=== PATIENT | female | born 2000 | race Caucasian/White ===

== ENCOUNTER → 2020-05-15 | Outpatient (CLI) | payer BC | LOC: COL.LAB 12:11 | DX: B82.9 Intestinal parasitism, unspecified (principal) ==

== ENCOUNTER → 2020-05-16 | Outpatient (CLI) | payer BC | LOC: COL.LAB 17:26 | DX: B82.9 Intestinal parasitism, unspecified (principal); B89 Unspecified parasitic disease ==